=== PATIENT | female | born 1965 | race Caucasian/White ===

== ENCOUNTER 2021-10-22 16:47 | Inpatient (IN) | payer OTHER, SELFPAY ==
[~2021-10-22 16:47] MED LIST: Iopamidol-370 76% 500 ML 1 ML ONE
[2021-10-22] MEDS ORDERED: Fentanyl 100 MCG/2 ML VIAL ONE ×3 (16:59→20:47)
[2021-10-22] MEDS ORDERED: Ondansetron PF 4 MG/2 ML Vial ONE ×3 (17:04→20:49)
[2021-10-22 17:30] LABS: Hemoglobin 12.4 g/dL (12.0-16.0); Mean Corpuscular HGB CONC 30.8 g/dL (32.0-36.0); Mean Corpuscular Hemoglobin 26.7 pg (27.0-31.0); Mean Corpuscular Volume 86.6 fL (78.0-98.0); Mean Platelet Volume 9.9 fL (7.4-10.4); Platelet Count 147 thou/uL (130-400); RBC Distribution Width 14.8 % (11.5-14.5); Red Blood Cell (RBC) Count 4.67 mill/uL (4.20-5.40); White Blood Cell (WBC) Count 6.4 thou/uL (4.8-10.8)
[2021-10-22 17:32] LABS: Prothrombin Time 13.2 sec (12.0-14.7)
[2021-10-22 17:33] LABS: Anisocytosis SLIGHT = 6-15 cells (100X) (0-5/hpf); Band 1 % (5-11); Eosinophils 1 % (0-10); Lymphocytes 21 % (21-51); MDiff Complete? YES; Monocytes 7 % (0-10); Neutrophil 69 % (42-75); Ovalocytes SLIGHT = 2-5 cells (100X) (0-1/hpf); Platelet Morphology Comment Appears Adequate; Polychromasia SLIGHT = 2-3 cells (100X) (0-2/hpf)
[2021-10-22 17:40] LABS: ALT (SGPT) 17 U/L (8-55); AST (SGOT) 25 U/L (5-34); Alkaline Phosphatase 78 U/L (40-110); Anion Gap 14 mmol/L (10-20); BUN (Urea Nitrogen) 12 mg/dL (9.8-20.1); Bilirubin, Total 0.9 mg/dL (0.2-1.2); Calc. Creatinine Clearance 0 mL/min (70-130); Carbon Dioxide 20 mmol/L (22-29); Chloride 108 mmol/L (98-107); Glucose 90 mg/dL (70-105); Lipase 20 U/L (8-78); Potassium 4.1 mmol/L (3.5-5.1); Sodium 138 mmol/L (136-145)
[2021-10-22 18:25] LABS: PTT 30.3 sec (22.9-36.1)
[2021-10-22] MEDS ORDERED: HYDROcodone/Acetaminophen 5/325 mg Tablet ONE (18:45)
[2021-10-22] MEDS ORDERED: Dextrose 5% in Water 1,000 ML IV PRN (21:04)
[2021-10-22] MEDS ORDERED: Dextrose 50% Abboject 50 ML SYRINGE SLOW IVP PRN (21:04)
[2021-10-22] MEDS ORDERED: Ondansetron ODT 4 MG TAB PO PRN (21:04)
[2021-10-22] MEDS ORDERED: Rib Fracture Protocol PO SCH (21:15)
[2021-10-22] MEDS ORDERED: Cyclobenzaprine 10 MG TAB PO PRN (21:15)
[2021-10-22] MEDS ORDERED: Ibuprofen 200 MG TAB PO SCH (22:00)
[2021-10-23 00:04] VITALS: BMI 32.8
[2021-10-23] MEDS: Acetaminophen 500 MG TAB PO SCH ×3 (00:29→12:30)
[2021-10-23] MEDS: Ibuprofen 200 MG TAB PO SCH ×3 (00:29→12:30)
[2021-10-23] MEDS: traMADol HCl 50 MG TAB PO SCH ×3 (00:57→14:31)
[2021-10-23 01:59] LABS: SARS-CoV-2 NAA Rapid Test Not Detected (NotDetected)
[2021-10-23] MEDS: Gabapentin 300 MG CAP PO SCH ×2 (08:20→15:47)
[2021-10-23] MEDS ORDERED: Famotidine 20 MG TAB PO SCH (09:00)
[2021-10-23 12:38] VITALS: BP 136/83; TEMP 98.6
[2021-10-23] MEDS ORDERED: Triple Antibiotic Oint 1 GM Packet TOP SCH ×2 (13:15→21:00)
== END 2021-10-23 15:53 | disposition home or self-care (01) | DRG 200 ==
LOC: ERS 16:47 → SJJU 20:57
PROVIDERS: ADMIT Specialist; ATTEND Specialist
DX: S27.0XXA Traumatic pneumothorax, initial encounter (principal); S22.31XA Fracture of one rib, right side, initial encounter for closed fracture; S27.321A Contusion of lung, unilateral, initial encounter; S60.511A Abrasion of right hand, initial encounter; V89.2XXA Person injured in unspecified motor-vehicle accident, traffic, initial encounter; Z90.49 Acquired absence of other specified parts of digestive tract; Z98.84 Bariatric surgery status; Z88.6 Allergy status to analgesic agent; Z88.5 Allergy status to narcotic agent; Z88.8 Allergy status to other drugs, medicaments and biological substances; Z87.891 Personal history of nicotine dependence; Z82.49 Family history of ischemic heart disease and other diseases of the circulatory system; Z80.3 Family history of malignant neoplasm of breast
CPT/HCPCS: 70450; 71045; 71260; 72125; 74177; 80053; 83690; 85025; 85610; 85730; 94640; 96374; 96375; 96376; G0390; J2405; J3010; J7620; Q9967; U0002

== ENCOUNTER 2021-10-26 15:57 | Outpatient (CLI) | payer OTHER | END 2021-10-26 15:58 | disposition home or self-care (01) | LOC: BICRAD 15:57 | PROVIDERS: ATTEND Student in an Organized Health Care Education/Training Program | DX: J93.9 Pneumothorax, unspecified (principal) | CPT/HCPCS: 71046 ==